=== PATIENT | female | born 1930 | race Caucasian/White ===

== ENCOUNTER 2016-08-02 14:24 | Emergency (ER) | payer OTHER ==
--- NOTE | 2016-08-02 15:11 | PROVIDER DOCUMENTATION ---
HPI-Head Injury - General Chief Complaint: Fall Stated Complaint: fall Time Seen by Provider: 08/02/16 14:24 Source: patient Allergies/Adverse Reactions: Patient Allergies Allergy/AdvReac Type Severity Reaction Status Date / Time Penicillins Allergy Mild Unknown Verified 08/02/16 14:41 ceftriaxone sodium * Allergy Unknown RASH Verified 08/02/16 14:41 [From Rocephin] Home Medications: Metoprolol [Lopressor] 25 mg PO QAM 01/24/15 Tamoxifen [Nolvadex] 20 mg PO QAM 01/24/15 Temazepam 15 mg PO QHS 01/24/15 Vit C/Vit E Acetate/Lutein/Min [Ocuvite Lutein Capsule] 1 each PO QAM 01/24/15 Apixaban [Eliquis] 2.5 mg PO BID 03/12/16 Omeprazole [Prilosec] 20 mg PO EVERY OTHER DAY 03/12/16 Oxybutynin Chloride 5 mg PO DAILY 03/14/16 - History of Present Illness-Head Injury Nature of Presenting Problem: Patient is a 85 y/o F that presents to the post fall, patient has small lacerations to scalp and c/o right hip and arm pain. denies loc. she tripped while putting up dog. Head Injury Location: reports: occipital Other injuries associated with incident:: reports: RUMICHAEL Ro (hip) Quality of Pain: reports: dull Severity: reports: mild, moderate Onset/Duration: reports: abrupt, just prior to arrival Timing: reports: still present, improving Method of Injury: reports: direct blow, fell Any recent trauma/injury?: reports: none Loss of Consciousness: no loss of consciousness Modifying Factors: improves with: nothing Injury Associated Symptoms: reports: headaches, joint pain. denies: back/neck pain, shortness of breath, pain with inspiration, vomiting, weakness Locality of Occurance: Home Similar Symptoms Previously?: No Recently seen or treated by another doctor?: No Review of Systems - Adult - REVIEW OF SYSTEMS - ADULT Constitutional: denies: chills, fever Eyes: denies: decreased vision, blurred vision, double vision, eye pain Ears, Nose, Mouth & Throat: denies: ear pain, sinus problem, throat pain, throat swelling Cardiovascular: denies: chest pain, palpitations, syncope Respiratory: denies: chronic cough, cough, dyspnea on exertion, shortness of breath, wheezing Gastrointestinal: denies: abdominal pain, diarrhea, nausea, vomiting Genitourinary: reports: no symptoms reported Musculoskeletal: reports: bone pain, joint pain. denies: back pain, neck pain Integumentary: reports: no symptoms reported Neurological: reports: headache/migraines. denies: dizziness/vertigo, seizure, tremors Psychiatric: reports: no symptoms reported Endocrine: reports: no symptoms reported Hematologic/Lymphatic: reports: no symptoms reported Allergic/Immunologic: reports: no symptoms reported All Other Systems: Reviewed and Negative Past History - Adult - PAST MEDICAL HISTORY-ADULT Review of Records: reports: Old Records Reviewed, Nursing Assessment Review, Medications Reviewed Major Childhood Illnesses: reports: denies history Cardiovascular: reports: A-Fib, CHF Respiratory: reports: COPD Gastrointestinal: reports: denies history Obstetrical/Gynecological: reports: other (breast cancer) Genitourinary: reports: denies history Musculoskeletal: reports: neck/back injury (compression fx), osteoporosis Neurological: reports: denies history Endocrine/Immune: reports: denies history Other Conditions: reports: denies history - PRIOR SURGERIES/PROCEDURES Surgical/Procedure History: reports: appendectomy, hysterectomy, , bowel surgery (colectomy), orthopedic (extremity) - IMMUNIZATION STATUS Childhood Immunizations: UTD Flu Vaccine: UTD Physical Exam- Neurological - Physical Exam-Neuro Initial Vital Signs Reviewed: Yes General Appearance: alert, anxious Eye Exam: bilateral eye: normal inspection, PERRL HENMT: moist mucous membranes, normal ENT inspection, TMs normal, pharynx normal Head Injury: lacerations (1cm supeficial to scalp). negative: ecchymosis, flap Neck: non-tender, full range of motion, normal inspection. 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, normal speech, PERRL Motor/Sensory: no motor deficit, no sensory deficit Neurologic: grossly normal, no motor/sensory deficits Integumentary: normal turgor, warm/dry Psych/Mental Status: normal mood/affect, normal thought content, normal thought process, oriented x 3 - Glascow Coma Scale Best Eye Response: (4) open spontaneously Best Verbal Response: (5) oriented Best Motor Response: (6) obeys commands Total Glascow Score: 15 Progress - PLAN OF CARE/RESULTS Progress/Plan/Lab Results: plan of care-xrays, head ct Vital Signs Temp Pulse Resp BP Pulse Ox 08/02/16 14:27 97.5 F L 81 20 122/88 100 Penicillins Allergy (Mild, Verified 08/02/16 14:41) Unknown ceftriaxone sodium * [From Rocephin] Allergy (Unknown, Verified 08/02/16 14:41) RASH Metoprolol [Lopressor] 25 mg PO QAM 01/24/15 Tamoxifen [Nolvadex] 20 mg PO QAM 01/24/15 Temazepam 15 mg PO QHS 01/24/15 Vit C/Vit E Acetate/Lutein/Min [Ocuvite Lutein Capsule] 1 each PO QAM 01/24/15 Apixaban [Eliquis] 2.5 mg PO BID 03/12/16 Omeprazole [Prilosec] 20 mg PO EVERY OTHER DAY 03/12/16 Oxybutynin Chloride 5 mg PO DAILY 03/14/16 Hydrocodone/Acetaminophen [[place] 5-325 Tablet] 1 each PO Q4-6H PRN PRN #12 tablet 08/02/16 Orders Category Date Time Status Shoulder Immobilizer DIRECTED Care 08/02/16 17:05 Active Wound Care DIRECTED Care 08/02/16 17:05 Active ELBOW COMPLETE RIGHT [RAD] Stat Exams 08/02/16 14:53 Taken FOREARM-RIGHT [RAD] Stat Exams 08/02/16 14:53 Taken HEAD/C-SPINE W/O CONTRAST [CT] Stat Exams 08/02/16 14:49 Draft HIP 1 VIEW RIGHT [RAD] Stat Exams 08/02/16 14:50 Taken SHOULDER-RIGHT [RAD] Stat Exams 08/02/16 14:53 Taken Morphine Med 08/02/16 16:35 Discontinued 2 mg IM NOW ONE pt will be d/c f/u with ortho, rx given, pt was clinically and neurologically stable - XRAY 1 XRAY: Right XRAY Study: Shoulder, Elbow, Forearm Impression: Normal XRAY Interpretation: no fx 2 XRAY: Right XRAY Study: Hip Impression: Normal XRAY Interpretation: no fx - CT/MRI 1 CT Study: Head Impression: Normal CT Results: negative 2 CT Study: Cervical Spine Impression: Abnormal CT Results: DJD, no fx Procedures - SPLINTING Right Upper Extremity Pre-Procedure Neurovascular Exam: Intact Pre-Fabricated Splint: Arm Sling Applied By: nnp Post Procedure Neurovascular Exam: Intact Departure - Departure Time of Disposition Order: 17:03 DIAGNOSIS: Fall Qualifiers: Encounter type: sequela Qualified Code(s): W19.XXXS - Unspecified fall, sequela Head injury Qualifiers: Encounter type: initial encounter Qualified Code(s): S09.90XA - Unspecified injury of head, initial encounter Scalp laceration Qualifiers: Encounter type: initial encounter Qualified Code(s): S01.01XA - Laceration without foreign body of scalp, initial encounter Contusion of right hip Qualifiers: Encounter type: initial encounter Qualified Code(s): S70.01XA - Contusion of right hip, initial encounter Contusion of right arm Qualifiers: Encounter type: initial encounter Qualified Code(s): S40.021A - Contusion of right upper arm, initial encounter Disposition: HOME 01 Certified Medical Emergency: Emergent Condition: Stable Additional Instructions: ED Follow Up Instructions: You have been treated by a care provider in the Emergency Department. These instructions are being provided to you so you can have an understanding of how to care for yourself upon discharge. Upon discharge from the Emergency Department, you are responsible for making arrangements for follow-up care by a physician of your choice. Take all prescribed medications as directed. Return to the Emergency Department immediately for any new or worsening symptoms. You may call the Physician Referral phone number at [phone] to obtain a list of Physicians who are taking new patients. Referrals: Slava Osorio MD [Primary Care Provider] - Jaime Albert MD [STAFF PHYSICIAN] - Instructions: Head Injury, Adult, [id number], Contusions-SportsMed
[2016-08-02] MEDS ORDERED: MORPHINE IM ONE (16:35)
--- NOTE | 2016-08-02 16:36 | Diag Imaging Result Document ---
PROCEDURE NAME: HEAD/C-SPINE W/O CONTRAST - 08/02/2016 CT HEAD WITHOUT CONTRAST: A dose reduction protocol was used. Compared with 01/24/2015. FINDINGS: There are some generalized atrophic changes and mild chronic microvascular ischemic changes similar to the previous exam. There is no indication of recent infarct, although acute infarcts may not be immediately visible. There is no evidence of intracranial hemorrhage , mass effect, or midline shift. There is no skull fracture. IMPRESSION: No evidence of intracranial injury. No intracranial hemorrhage or mass effect. CT CERVICAL SPINE WITHOUT CONTRAST: Axial and reformatted sagittal and coronal images are obtained. A dose reduction protocol was used. Compared 01/24/2015. FINDINGS: There is substantial multilevel degenerative disease similar to the previous exam. There is associated apparent mild spinal stenosis at C4-5. There is no fracture identified. There is no subluxation seen. There is no precervical soft tissue swelling identified. IMPRESSION: Substantial multilevel degenerative disease similar to previous exam. No evidence of fracture or subluxation. [facility]
--- NOTE | 2016-08-02 17:40 | Diag Imaging Result Document ---
PROCEDURE NAME: HIP 1 VIEW RIGHT - 08/02/2016 AP RIGHT HIP: FINDINGS: There is no fracture or dislocation identified. IMPRESSION: No evidence of fracture or dislocation.
--- NOTE | 2016-08-02 17:42 | Diag Imaging Result Document ---
PROCEDURE NAME: FOREARM-RIGHT - 08/02/2016 RIGHT FOREARM 2 VIEWS: FINDINGS: There is no fracture identified. There are atherosclerotic calcifications noted. IMPRESSION: No evidence of fracture.
--- NOTE | 2016-08-02 17:43 | Diag Imaging Result Document ---
PROCEDURE NAME: SHOULDER-RIGHT - 08/02/2016 RIGHT SHOULDER 3 VIEWS: COMPARISON: 01/24/2015. FINDINGS: There are degenerative changes which appear progressive, with apparent increased narrowing of the glenohumeral joint. There is smooth bony hypertrophy at the greater tuberosity of the humerus, which has increased and may relate to progressive degenerative change or possibly interval old injury. There is no acute-appearing fracture identified. There is no dislocation seen. IMPRESSION: Progressive degenerative disease compared to prior. No evidence of fracture or dislocation.
--- NOTE | 2016-08-02 17:56 | Diag Imaging Result Document ---
PROCEDURE NAME: ELBOW COMPLETE RIGHT - 08/02/2016 RIGHT ELBOW, 3 VIEWS: COMPARISON: Compared with 01/24/2015. FINDINGS: There is elevation of the anterior fat pad of the distal humerus. There is no fracture identified. There is no dislocation seen. IMPRESSION: 1. Elevation of anterior fat pad of the distal humerus, which suggests the presence of joint effusion or hemorrhage. 2. No fracture or dislocation identified. 3. Due to the distal humeral fat pad elevation, followup exam in about 1 week is recommended in order to exclude occult fracture.
[2016-08-02 18:30] VITALS: BP 130/64
== END 2016-08-02 18:29 | disposition home or self-care (01) ==
LOC: EDBD → ED 14:24
DX: S01.01XA Laceration without foreign body of scalp, initial encounter (principal); S70.01XA Contusion of right hip, initial encounter; S09.90XA Unspecified injury of head, initial encounter; S40.021A Contusion of right upper arm, initial encounter; R51 Headache; M89.8X8 Other specified disorders of bone, other site; M89.8X2 Other specified disorders of bone, upper arm; I48.91 Unspecified atrial fibrillation; Z79.899 Other long term (current) drug therapy; J44.9 Chronic obstructive pulmonary disease, unspecified; Z85.3 Personal history of malignant neoplasm of breast; M81.0 Age-related osteoporosis without current pathological fracture; M25.511 Pain in right shoulder; M25.521 Pain in right elbow; W19.XXXA Unspecified fall, initial encounter; Z79.01 Long term (current) use of anticoagulants
CPT/HCPCS: 70450; 72125; 96372; J2270

== ENCOUNTER 2018-11-17 11:21 | Inpatient (IN) ==
--- NOTE | 2018-11-17 13:18 | EKG Report ---
Test Performed on : 11/17/2018 11:41:52 AM Test Reason : palpitations hx a fib Blood Pressure : / mmHG Vent. Rate : 060 BPM Atrial Rate : 357 BPM P-R Int : 000 ms QRS Dur : 082 ms QT Int : 394 ms P-R-T Axes : 000 013 026 degrees QTc Int : 394 ms Atrial fibrillation. Abnormal ECG When compared with ECG of 18-MAR-2016 12:17, Vent. rate has decreased BY 39 BPM Unconfirmed Result
--- NOTE | 2018-11-17 14:39 | PROVIDER DOCUMENTATION ---
HPI-Cardiac General - General Chief Complaint: Palpitations Stated Complaint: SOB, HEART RACING Time Seen by Provider: 11/17/18 14:21 Source: patient Allergies/Adverse Reactions: Patient Allergies Allergy/AdvReac Type Severity Reaction Status Date / Time Penicillins Allergy Mild Unknown Verified 08/02/16 14:41 ceftriaxone sodium * Allergy Unknown RASH Verified 08/02/16 14:41 [From Rocephin] Home Medications: Home Medication List Medication Instructions Recorded Confirmed Last Taken Type Metoprolol [Lopressor] 25 mg PO QAM 01/24/15 03/14/16 03/11/16 08:00 History Tamoxifen [Nolvadex] 20 mg PO QAM 01/24/15 03/14/16 03/11/16 History 20 Temazepam 15 mg PO QHS 01/24/15 03/12/16 03/10/16 History 15 mg Vit C/Vit E Acetate/Lutein/Min 1 each PO QAM 01/24/15 03/12/16 03/05/16 History [Ocuvite Lutein Capsule] 1 Apixaban [Eliquis] 2.5 mg PO BID 03/12/16 03/12/16 03/11/16 08:00 History 2.5 mg Omeprazole [Prilosec] 20 mg PO EVERY OTHER DAY 03/12/16 03/12/16 03/10/16 History Oxybutynin Chloride 5 mg PO DAILY 03/14/16 03/14/16 03/11/16 History Hydrocodone/Acetaminophen [[place] 1 each PO Q4-6H PRN PRN #12 tablet 08/02/16 Unknown Rx 5-325 Tablet] - History of Present Illness-Cardiac Nature of Presenting Problem: reports heart palpitation (pounding this morning with sob). she took furosemide which seemed to ease the symptoms. happened once several months ago. cxr at doctor office shows pericardial effusion therefore given lasix qod. forgot to take on saturday. history of afib on eliquis. HR 66 bp 148/67, sat 98%. comfortable. denied headche, cp, sob at presenttime, lower extremity edema. partial blind both eyes. no n/v. admits to decreased appetite and wt loss. currently on chemotherapy for her breast cancer x2. no other problem. (her sister came with her and would like to check in as well) Review of Systems - Adult - REVIEW OF SYSTEMS - ADULT Constitutional: reports: no symptoms reported Eyes: reports: no symptoms reported Ears, Nose, Mouth & Throat: reports: no symptoms reported Cardiovascular: reports: no symptoms reported Respiratory: reports: no symptoms reported Gastrointestinal: reports: no symptoms reported Genitourinary: reports: no symptoms reported Musculoskeletal: reports: no symptoms reported Integumentary: reports: no symptoms reported Neurological: reports: no symptoms reported Psychiatric: reports: no symptoms reported Endocrine: reports: no symptoms reported Hematologic/Lymphatic: reports: no symptoms reported Allergic/Immunologic: reports: no symptoms reported All Other Systems: Reviewed and Negative Past History - Adult - PAST MEDICAL HISTORY-ADULT Review of Records: reports: Old Records Reviewed, Nursing Assessment Review, Medications Reviewed, Social history reviewed & non-contributory. Major Childhood Illnesses: reports: denies history Cardiovascular: reports: A-Fib, CHF Respiratory: reports: COPD Gastrointestinal: reports: denies history Obstetrical/Gynecological: reports: other (breast cancer) Genitourinary: reports: denies history Musculoskeletal: reports: neck/back injury (compression fx), osteoporosis Neurological: reports: denies history Endocrine/Immune: reports: denies history Other Conditions: reports: denies history - PRIOR SURGERIES/PROCEDURES Surgical/Procedure History: reports: appendectomy, hysterectomy, , bowel surgery (colectomy), orthopedic (extremity) - IMMUNIZATION STATUS Childhood Immunizations: UTD Flu Vaccine: UTD - FAMILY HISTORY Family History: reviewed, not pertinent - SOCIAL HISTORY Smoking: denies Substance Use: none/never Alcohol Use Frequency: never Living Situation: alone Physical Exam-General - PHYSICAL EXAM-ADULT Initial Vital Signs Reviewed: Yes - CONSTITUTIONAL General Appearance: appears well, alert, no apparent distress - EYES Eyes: PERRL/EOMI, pink conjunctivae - HEAD, EARS, NOSE, MOUTH & THROAT HENMT: normocephalic/atraumatic, moist mucous membranes, normal ENT inspection, other (dentures) - NECK Neck: non-tender, full range of motion - RESPIRATORY Respiratory: chest non-tender, lungs clear, normal breath sounds, no pleuratic chest pain, no respiratory distress, no accessory muscle use - CARDIOVASCULAR Cardiovascular: normal peripheral pulses, irregularly irregular - GASTROINTESTINAL (ABDOMEN) Abdominal Exam: normal bowel sounds, non tender, soft, other (scars from prior surgery) - MUSCULOSKELETAL Back Exam: normal inspection, kyphosis Extremity: normal range of motion, non-tender, normal inspection, no pedal edema - SKIN Integumentary: normal color, normal turgor, warm/dry - NEUROLOGIC Neurologic: grossly normal, no motor/sensory deficits - PSYCHIATRIC Psych/Mental Status: normal mood/affect, normal thought content, normal thought process, oriented x 3 - HEART Score HEART Score: History: Slightly Suspicious HEART Score: ECG: Non-Specific Repolarization Disturbance/LBBB/PM HEART Score: Age: > or = 65 Years HEART Score: Risk Factors for Atherosclerotic Disease: > or = 3 Risk Factors or History of Atherosclerotic Disease HEART Score: Troponin: < or = Normal Limit Total HEART Score:: 5 Progress - PLAN OF CARE/RESULTS Progress/Plan/Lab Results: Vital Signs - 8 hr 11/17/18 11:33 11/17/18 14:30 11/17/18 15:30 Temperature 97.5 F L Pulse Rate 67 66 70 Respiratory Rate 18 20 23 Blood Pressure 135/70 148/88 142/98 O2 Sat by Pulse Oximetry 95 94 L 96 Laboratory Results - last 24 hr 11/17/18 11/17/18 11/17/18 15:40 15:40 15:40 WBC 5.69 RBC 4.10 L Hgb 12.9 Hct 39.7 MCV 96.8 MCH 31.5 H MCHC 32.5 L RDW Std Deviation 13.0 Plt Count 153 MPV 10.9 H Immature Gran % (Auto) 0.5 Neut % (Auto) 69.8 Lymph % (Auto) 19.9 L [place] % (Auto) 7.6 Eos % (Auto) 1.8 Baso % (Auto) 0.4 Immature Gran # (Auto) 0.03 Neut # (Auto) 3.98 Lymph # (Auto) 1.13 L [place] # (Auto) 0.43 Eos # (Auto) 0.10 Baso # (Auto) 0.02 Sodium 145 Potassium 4.3 Chloride 108 H Carbon Dioxide 26 Anion Gap 11 BUN 14 Creatinine 0.8 Estimated GFR/1.73 m2 > 60 BUN/Creatinine Ratio 18 Glucose 97 Calculated Osmolality 289 Calcium 8.9 Total Bilirubin 0.90 AST 15 ALT 11 Alkaline Phosphatase 85 Troponin T < 0.010 Wag-E-Lccdogtvfrw Pept Total Protein 6.7 Albumin 4.2 Globulin 3.0 Albumin/Globulin Ratio 2.0 TSH 11/17/18 11/17/18 15:40 15:40 WBC RBC Hgb Hct MCV MCH MCHC RDW Std Deviation Plt Count MPV Immature Gran % (Auto) Neut % (Auto) Lymph % (Auto) [place] % (Auto) Eos % (Auto) Baso % (Auto) Immature Gran # (Auto) Neut # (Auto) Lymph # (Auto) [place] # (Auto) Eos # (Auto) Baso # (Auto) Sodium Potassium Chloride Carbon Dioxide Anion Gap BUN Creatinine Estimated GFR/1.73 m2 BUN/Creatinine Ratio Glucose Calculated Osmolality Calcium Total Bilirubin AST ALT Alkaline Phosphatase Troponin T Oam-N-Impqgmiylfh Pept 3095 H Total Protein Albumin Globulin Albumin/Globulin Ratio TSH 1.01 Orders Category Date Time Status Nursing- Obtain EKG ONCE Care 11/17/18 11:37 Active cxr [CHEST-2 VIEWS] [RAD] Stat Exams 11/17/18 14:45 Completed BNP [PRO B-NATRIURETIC PEPTIDE] Stat Lab 11/17/18 15:40 Completed CBC WITH ELECTRONIC DIFF [HEME] Stat Lab 11/17/18 15:40 Completed COMPREHENSIVE METABOLIC PANEL [CHEM] Stat Lab 11/17/18 15:40 Completed TROPONIN T Stat Lab 11/17/18 15:40 Completed TSH Stat Lab 11/17/18 15:40 Completed EKG [EKG] Stat Ther 11/17/18 11:37 Draft Result Diagrams: 11/17/18 15:40 11/17/18 15:40 - REASSESSMENT Reassessment #1 Time Reassessed: 17:38 (recommend pt to stay for chf exac, pt voiced understanding. ) - CONSULTS/PCP/HOSPITALIST Notification #1 *Consult/PCP/Hospitalist*: Dr. Abdullahi Time Discussed: 17:38 (recommends admission. consult him) Consult Disposition: Admit Departure - Departure Date of Disposition Decision: 11/17/18 Time of Disposition Decision: 17:39 DIAGNOSIS: CHF exacerbation Disposition: ADMITTED INPATIENT 09 Certified Medical Emergency: Emergent Condition: Stable Referrals and Follow-Ups: Ines Osorio MD [Primary Care Provider] - - Critical Care Note This patient required my direct & personal management of CC.: No Attestation - Physician/ OMER Attestation The physician spent face to face time with patient:: Yes Advanced Practice Provider documentation review:: Supervising physician onsite and consulted in the evaluation and care of this patient. The physician did have a face to face encounter with the patient.
--- NOTE | 2018-11-17 15:06 | Diag Imaging Result Doc PS360 ---
EXAM: CHEST-2 VIEWS HISTORY: chf TECHNIQUE: Chest two views COMPARISON: 03/14/2016 FINDINGS: The lungs are hyperexpanded. The heart is not enlarged. There is a right sided portacatheter. The vessels are not distended. There are no infiltrates. No pleural effusions. IMPRESSION: Emphysema. No congestive failure. Electronically signed by Lewis Brunson 11/17/2018 3:04 PM
[2018-11-17 15:58] LABS: HEMOGLOBIN 12.9 g/dL (12.0-16.0)
[2018-11-17 16:00] LABS: BASO# 0.02 X1000 (0.0-0.2); BASO% 0.4 % (0.0-0.8); EOS% 1.8 % (0.0-10.0); HEMATOCRIT 39.7 % (37.0-47.0); IMM GRAN# 0.03 X1000 (0.0-0.04); IMM GRAN% 0.5 % (0.0-0.5); LYMPH# 1.13 X1000 (1.2-3.4); LYMPH% 19.9 % (20.5-51.1); MCH 31.5 PG (27-31); MCHC 32.5 g/dL (33-37); MCV 96.8 FL (81-99); MONO# 0.43 X1000 (0.11-0.59); MONO% 7.6 % (1.7-9.3); MPV 10.9 FL (7.4-10.4); NEUT# 3.98 X1000 (1.4-6.5); NEUT% 69.8 % (42.2-75.2); PLT 153 X1000 (130-400); WBC 5.69 X1000 (4.8-10.8)
[2018-11-17 16:12] LABS: AGAP 11; ALBUMIN 4.2 g/dL (3.5-5.0); ALKALINE PHOSPHATASE 85 U/L (32-104); BUN 14 mg/dL (8-22); CALCIUM 8.9 mg/dL (8.8-10.2); CHLORIDE 108 mmol/L (98-107); COSMO 289; CREATININE 0.8 mg/dL (0.5-0.9); ESTIMATED GFR > 60; GLUCOSE 97 mg/dL (70-104); GOT 15 U/L (10-30); GPT 11 U/L (10-36); POTASSIUM 4.3 mmol/L (3.5-5.1); SODIUM 145 mmol/L (136-145); TCO2 26 mmol/L (25-35); TOTAL PROTEIN 6.7 g/dL (6.3-8.3)
[2018-11-17] MEDS ORDERED: LASIX PO ONE (17:38)
[2018-11-18 07:44] LABS: BILIRUBIN URINE NEGATIVE (NEGATIVE); BLOOD URINE NEGATIVE (NEGATIVE); CLARITY CLEAR (CLEAR); COLOR YELLOW; GLUCOSE URINE NEGATIVE (NEGATIVE); KETONE URINE NEGATIVE (NEGATIVE); LEUKOCYTES URINE TRACE (NEGATIVE); NITRITE URINE NEGATIVE (NEGATIVE); PROTEIN URINE NEGATIVE (NEGATIVE); SP GRAVITY URINE 1.005; UROBILINOGEN URINE NORMAL
[2018-11-18 07:45] LABS: URINE BACTERIA NEGATIVE /HFP; URINE CAST NONE SEEN /LPF; URINE CRYSTAL NONE SEEN /HPF; URINE EPITHELIAL CELLS <10 /HPF (<10); URINE RBC <10 /HPF (<10); URINE SOURCE CLEAN CATCH; URINE WBC <10 /HPF (<10); URINE YEAST NONE SEEN /HPF
[2018-11-18] MEDS ORDERED: PERCOCET-10 PO PRN (08:33)
[2018-11-18] MEDS ORDERED: PEPCID PO PRN (08:33)
[2018-11-18] MEDS ORDERED: RESTORIL PO PRN (08:33)
[2018-11-18] MEDS ORDERED: ELIQUIS PO SCH (09:00)
[2018-11-18] MEDS ORDERED: ALDACTONE PO SCH (09:00)
[2018-11-18] MEDS ORDERED: LASIX PO SCH (09:00)
[2018-11-18] MEDS ORDERED: OCUVITE LUTEIN & ZEAXANTHIN PO SCH (09:00)
[2018-11-18] MEDS ORDERED: TOPROL XL PO SCH (09:00)
--- NOTE | 2018-11-18 09:22 | HISTORY AND PHYSICAL ---
PRIMARY CARE PHYSICIAN: Dr. Osorio. CHIEF COMPLAINT: Palpitations. HISTORY PRESENTING ILLNESS: This is an 88-year-old female who presents to [facility] ER with complaints of palpitations. States they began yesterday but that she has them frequently due to being in chronic paroxysmal atrial fibrillation. She also felt some shortness of breath, but she states that is no worse than it normally is. Her laboratory data showed a proBNP of 3095, which is around her stable according to previous records. She had an echocardiogram done on 09/22/2018 that was read as an ejection fraction of 67%. Left ventricle shows normal contractility. No wall abnormality. Her chest x-ray in the emergency room showed emphysema, but no congestive heart failure. She was admitted for observation overnight for further evaluation and treatment. PAST MEDICAL HISTORY: Atrial fibrillation, partial blindness bilaterally, breast cancer x2, congestive heart failure, COPD, a compression fracture and osteoporosis. PAST SURGICAL HISTORY: Appendectomy, hysterectomy, and a cholecystectomy. FAMILY HISTORY: Reviewed and noncontributory. SOCIAL HISTORY: She currently lives alone. Denies any tobacco, alcohol or illicit drug use. ALLERGIES: To penicillin and ceftriaxone. HOME MEDICATIONS: She takes Eliquis 2.5 mg p.o. b.i.d., Pepcid 20 mg p.o. daily p.r.n. , Lasix 20 mg p.o. daily, metoprolol 25 mg p.o. daily, oxycodone 10/325 1 p.o. b.i.d. p.r.n. , spironolactone 25 mg p.o. daily, temazepam 15 mg p.o. at bedtime p.r.n. and Ocuvite capsule 1 p.o. q.a.m. LABORATORY DATA: Showed a white blood cell count of 5.69, hemoglobin 12.9, hematocrit 39.7, platelets 153,000. Sodium 145, potassium 4.3, chloride 108, CO2 26, BUN of 14, creatinine 0.8, glucose 97. TSH of 1.01. ProBNP of 3095. Troponin less than 0.010. Urinalysis was negative. Chest x-ray showed emphysema, but no congestive heart failure. EKG showed atrial fibrillation at 60. REVIEW OF SYSTEMS: She denied any fever, chills, blurred vision, dizziness. She denied any chest pain. Did have some palpitations, but she says that is a chronic problem for her. She also had some shortness of breath that she also says is chronic in nature. Denied any cough, abdominal pain, constipation, diarrhea, burning or hurting with urination. PHYSICAL EXAMINATION: On arrival she had a temperature of 97.5 degrees, pulse 67, respirations 18, blood pressure 135/70, saturating 95% on room air. GENERAL: This is an 88-year-old female sitting up in the bed, answers questions appropriately. HEEMNT: Normocephalic, atraumatic. Normal ENT inspection. Oropharynx and nares are clear. EYES: Pupils are equal, round, reactive to light and accommodation. She does have partial blindness bilaterally, but extraocular movements are intact. NECK: Normal inspection. Normal range of motion. LUNGS: Clear to auscultation bilaterally with equal lung expansion and chest wall movement. HEART: Irregular rhythm with controlled rate. No murmurs, rubs, or gallops. ABDOMEN: Soft, nontender, nondistended. Bowel sounds are present x4 quadrants. MUSCULOSKELETAL: She has 5/5 strength x4 extremities. NEUROLOGICAL: The cranial nerves 2-12 appear grossly intact. ASSESSMENT: 1. Palpitations. 2. Atrial fibrillation with chronic anticoagulation and rate controlled currently. 3. Congestive heart failure, history of, none currently our. PLAN: She was admitted to the medical unit at [place], placed on telemetry. Daily weights. Healthy heart diet. We have continued her home medications. After reviewing her chest x-ray, echocardiogram, and proBNP I am not going to give any extra Lasix. She does not have any lower extremity edema. Lungs are clear, saturating 95% on room air. We will continue to monitor. Further orders after being seen by attending this a.m. Dictated by HUSSAIN Anderson for Luis M Marinelli MD Addendum: Patient seen and examined by myself. Agree with HUSSAIN note. It reflects my assessment and plan. Patient is being admitted to hospital for shortness of breath that patient do not longer have. CXR is not showing any pulmonary edema. She reports taking Lasix every other day but her prescription says daily. We have recommended her to take it in a daily basis. She is being discharged in stable condition and will be seen by her advertising agent in 2 to 4 weeks. Matt#: [id number] cc: HUSSAIN Anderson MD Jagan Reddy, MD MTDD
[2018-11-18 11:57] VITALS: BP 137/69
--- NOTE | 2018-11-18 15:01 | DISCHARGE SUMMARY ---
ADMISSION DATE: 11/17/2018 DISCHARGE DATE: 11/18/2018 PRIMARY CARE PHYSICIAN: Dr. Sofie Osorio ADMISSION DIAGNOSES: 1. Palpitations. 2. Atrial fibrillation with chronic anticoagulation, currently rate controlled. 3. Congestive heart failure, history of. DISCHARGE DIAGNOSES: 1. Palpitations, resolved. 2. Atrial fibrillation with chronic anticoagulation and currently rate controlled. 3. History of congestive heart failure. SUMMARY OF FINDINGS: This is an 88-year-old female, who presented to the ER after she began having some palpitations that she said can be chronic for her and some also shortness of breath that mildly worsened but was really no worse than it normally is. Her workup showed a proBNP of 3095, which is around her stable normal, according to previous records. She had an echo done on 09/22/2018 that was read as an ejection fraction of 67% with normal left ventricular contractility. No wall abnormality. Her chest x-ray showed emphysema, but no congestive heart failure. She was placed in observation. Today, she is feeling much better. No further palpitations. The attending reviewed all of her previous records and felt that she could safely be discharged home today. DISCHARGE MEDICATIONS: She will continue her home medications of Eliquis 2.5 mg p.o. b.i.d., 20 mg p.o. daily, furosemide 20 mg p.o. daily, metoprolol 25 mg p.o. daily, oxycodone 10, 1 p.o. b.i.d. p.r.n., spironolactone 25 mg p.o. daily, temazepam 15 mg p.o. at bedtime, Ocuvite capsule p.o. q.a.m. FOLLOWUP: She needs to follow up with her primary care physician on 12/02/2018 at 11 a.m. and with her final inspector and tester, Dr. Mckenna on 12/26/2018 at 2:30 p.m.. DISCHARGE INSTRUCTIONS: All discharge instructions have been reviewed with the patient and she verbalizes understanding. TIME SPENT WITH PATIENT: This is a 33 minute discharge. Dictated by HUSSAIN Anderson for Luis M Marinelli MD Addendum: Patient seen and examined by myself. Agree with HUSSAIN notes. It reflects my assessment and plan. Patient is being discharged in stable condition and she needs to see her final inspector and tester in 2 to 4 weeks. cc: MD Fareed Samuel MD Kami Whorton, CRNP Cesar Garcia-Rodriguez, MD MTDD
--- NOTE | 2018-11-20 12:11 | ED EKG INTERP ---
This chart was entered by Katey Jamil Scribe, acting as scribe for Rabia Nash MD. EKG Interpretation - EKG Time of EKG reading by physician:: 11:41 EKG Read and Signed by:: Rabia Nash EKG Interpretation (*Must complete 3 of following elements*): Abnormal Rate: 60 Rhythm: Atrial fibrillation QRS: normal ST Wave: normal Attestation - Physician/ OMER Attestation Patient care was provided by Advanced Practice Provider:: No The physician spent face to face time with patient:: Yes Advanced Practice Provider documentation review:: Supervising physician onsite and consulted in the evaluation and care of this patient. The physician did have a face to face encounter with the patient. This chart was documented by the indicated scribe, (Katey Jamil Scribe) and accurately reflects the services I performed and decisions made by me, Rabia Nash MD, as attested by the provider's signature.
== END 2018-11-18 12:36 | disposition home or self-care (01) | DRG 309 ==
LOC: P.ED 11:21 → SUATTDRO 20:29 → P.MEDSURG 20:29
PROVIDERS: ATTEND Internal Medicine
CPT/HCPCS: 71020; 71046; 80053; 81001; 83880; 84443; 84484; 85025; 87088; 93005; 99285; A9270